=== PATIENT | male | born 1965 | race Caucasian/White ===

== ENCOUNTER 2017-12-18 22:12 | Emergency (ER) | payer OTHER ==
[~2017-12-18] VITALS: Ht 188 cm; Wt 91.0 kg
[2017-12-18 23:10] LABS: HEMOGLOBIN 15.5 G/DL (12.5-16.6); MCH 32.2 PG (29.0-34.0); MCHC 36.9 G/DL (30.0-36.0); MCV 87.3 FL (86-99); PLATELET COUNT 169 K/uL (156-360); RBC DIS.WIDTH-CV 11.5 % (11.8-14.6); RBC DIS.WIDTH-SD 37.2 % (39-53); RED BLOOD COUNT 4.81 M/uL (4.00-5.50); WHITE BLOOD COUNT 7.6 K/uL (4.1-10.2)
[2017-12-18 23:22] LABS: CHLORIDE 106 mEq/L (99-109); POTASSIUM 3.5 mEq/L (3.7-5.4); SODIUM 142 mEq/L (136-147)
[2017-12-18 23:24] LABS: GLUCOSE 100 mg/dL (70-99)
[2017-12-18 23:27] LABS: CREATININE 1.4 mg/dL (0.6-1.3); GFR ESTIMATE (CALCULATED) 57 mL/min/ (58.99-99999)
[2017-12-18 23:28] LABS: UREA NITROGEN (BUN) 19 mg/dL (9-23)
[2017-12-18 23:31] LABS: TROP-I INTERPRETATION NEGATIVE; TROPONIN-I < 0.01 ng/mL (0.0-0.30)
[2017-12-19 02:22] LABS: APPEARANCE CLEAR ((CLEAR)); BILIRUBIN NEGATIVE; BLOOD NEGATIVE; COLOR STRAW ((YELLOW)); GLUCOSE (STRIP) NEGATIVE; KETONES NEGATIVE; LEUKOCYTES NEGATIVE; NITRITE NEGATIVE; PROTEIN (STRIP) NEGATIVE; SPECIFIC GRAVITY 1.011 (1.000-1.030); UCUL ADDED? NO; UROBILINOGEN 0.2 MG/DL (0.2-1.0)
[2017-12-19 02:29] LABS: TROP-I INTERPRETATION NEGATIVE; TROPONIN-I < 0.01 ng/mL (0.0-0.30)
[2017-12-19] MEDS ORDERED: METOPROLOL TART25 MG PO (03:44)
[2017-12-19 04:26] VITALS: BP 118/71
== END 2017-12-19 04:27 | disposition home or self-care (01) ==
LOC: EME 22:12
PROVIDERS: Emergency Medicine
DX: I48.0 Paroxysmal atrial fibrillation (principal); I45.2 Bifascicular block; Z88.0 Allergy status to penicillin
CPT/HCPCS: 71046; 80048; 81003; 84484; 85027; 93005; 99281; 99284; J7030